=== PATIENT | female | born 1990 | race Asian ===

== ENCOUNTER 2019-10-06 13:29 | Emergency (ER) | payer OTHER ==
[~2019-10-06] VITALS: Ht 144.8 cm; Wt 54.4 kg
[2019-10-06] MEDS ORDERED: SODIUM CHLORIDE 0.9% 1,000 ML IV ONE (14:03)
[2019-10-06] MEDS ORDERED: LORazepam 2MG/ML-1ML VIAL IV ONE (14:15)
[2019-10-06 14:32] LABS: Basophils # (auto) 0 uL; Basophils % (auto) 0.7 % (0.0-2.0); Eosinophils # (auto) 0 uL; Eosinophils % (auto) 0.4 % (0.0-7.0); Hematocrit 49.7 % (36.0-46.0); Hemoglobin 16.9 g/dL (12.2-16.2); Lymphocytes # (auto) 1.5 uL; Lymphocytes % (auto) 21.9 % (10.0-50.0); Mean Corpuscular Hemoglobin 30.9 pg (28.0-32.0); Mean Corpuscular Hgb Conc. 34.1 g/dL (32.0-36.0); Mean Corpuscular Volume 90.7 fL (80.0-100.0); Monocytes # (auto) 0.4 uL; Platelet Count (auto) 316 10^3/uL (140-450); Red Blood Cells 5.48 10^6/uL (4.0-5.20); Red Cell Distribution Width 13.9 % (11.8-14.3)
[2019-10-06 14:51] LABS: Albumin 4.4 g/dL (3.4-5.0); Anion Gap 8 (5-15); Blood Urea Nitrogen 14 mg/dL (7-18); Calcium 9.4 mg/dL (8.5-10.1); Carbon Dioxide 26 mmol/L (21-32); Chloride 103 mmol/L (98-107); Glucose 138 mg/dL (74-106); Potassium 3.4 mmol/L (3.5-5.1); Sodium 137 mmol/L (136-145)
[2019-10-06 14:56] LABS: Alanine Aminotransferase 24 U/L (13-56); Alkaline Phosphatase 79 U/L (45-117); Aspartate Aminotransferase 21 U/L (15-37); Bilirubin, Total 0.8 mg/dL (0.2-1.0); Blood Alcohol < 3.0 mg/dL (0-5); GFR African American 81 mL/min; GFR Non-African American 67 mL/min; Total Protein 8.7 g/dL (6.4-8.2)
[2019-10-06 15:01] LABS: BUN/Creatinine Ratio 13.3
[2019-10-06 16:28] LABS: Alcohol, Urine < 3.0 mg/dL (0-5); Amphetamine Screen, Urine NEGATIVE (NEGATIVE); Barbiturate Scree,Urine NEGATIVE (NEGATIVE); Benzodiazephine Screen, Urine NEGATIVE (NEGATIVE); Cannabinoid Screen, Urine NEGATIVE (NEGATIVE); Cocaine Screen, Urine NEGATIVE (NEGATIVE); Opiate Scree,Urine NEGATIVE (NEGATIVE); Phencyclidine Screen, Urine NEGATIVE (NEGATIVE)
[2019-10-06 17:35] VITALS: BP 133/95
== END 2019-10-06 17:36 | disposition home or self-care (01) ==
LOC: ER 13:40
DX: R00.2 Palpitations (principal); H53.8 Other visual disturbances; Z88.2 Allergy status to sulfonamides; Z88.0 Allergy status to penicillin
CPT/HCPCS: 36415; 80053; 80307; 80320; 85025; 93005; 99284; J7030